=== PATIENT | male | born 1930 | race Caucasian/White ===

== ENCOUNTER 2018-06-28 09:04 | Observation (INO) ==
[2018-06-28] MEDS ORDERED: IOPAMIDOL 100 ML BOTTLE IV ONE (09:05)
--- NOTE | 2018-06-28 09:12 | Emergency Department Note ---
Neuro HPI - General Chief Complaint: Stroke Symptoms Stated Complaint: Unable to stick tongue out straight. Time Seen by Provider: 06/28/18 09:10 Mode of arrival: ambulatory - History of Present Illness HPI Narrative: This patient was playing cribbage with his this morning at 730 when he began to have some stroke symptoms involving difficulty speaking and perhaps some left-sided weakness according to the . She also thought his tongue was deviating to the left when he stuck it out. The symptoms lasted about a minute and a half she thought. She now comes into the emergency room with her at about 9:10 AM. He is never had a stroke before. No history of atrial fib. At this time he has no symptoms and his NIH score I believe is 0. - Related Data Home Medications: Home Medications Medication Instructions Recorded Confirmed aspirin 81 mg tablet,delayed 81 mg PO QDAY tab 11/06/14 06/28/18 release Niacin 500 mg PO TID tab 07/23/15 06/28/18 ferrous sulfate 325 mg (65 mg 325 mg PO QDAY tab 01/20/18 06/28/18 iron) tablet ascorbic acid (vitamin C) 500 mg 500 mg PO QDAY 01/28/18 06/28/18 tablet magnesium oxide 400 mg (241.3 mg 400 mg PO QDAY tab 01/28/18 06/28/18 magnesium) tablet vitamin A 8,000 unit capsule 8,000 unit PO QDAY 01/28/18 06/28/18 vitamin E 200 unit capsule 400 unit PO QDAY cap 01/28/18 06/28/18 Cholecalciferol (Vitamin D3) 2,000 unit PO DAILY 06/28/18 06/28/18 [Vitamin D] Previous Rx's Medication Instructions Recorded leuprolide 45 mg (6 month) 45 mg SUB-Q ONCE #7 ml 12/02/16 subcutaneous syringe alendronate 70 mg tablet 70 mg PO QWEEK #15 tab 05/18/17 levothyroxine 75 mcg tablet 75 mcg PO QDAY #90 tab 04/11/18 omeprazole 20 mg capsule,delayed 20 mg PO QDAY #90 cap 05/20/18 release tramadol 50 mg tablet 50 mg PO BID PRN #60 tab 06/16/18 Allergies/Adverse Reactions: Allergies Allergy/AdvReac Type Severity Reaction Status Date / Time No Known Drug Allergies Allergy Verified 06/08/18 08:25 Review of Systems All systems ED: reviewed and negative except as stated. Past Medical History - Past Medical History [facility] Narrative: Medical History (Last Reviewed 06/08/18 @ 08:26 by Rena Tadeo RN) Prepatellar bursitis, left knee (Chronic) Greater trochanteric bursitis of right hip (Chronic) Leg pain, right (Chronic) Osteoarthritis (Chronic) Knee pain, left (Chronic) Elevated CK (Chronic) Anemia (Resolved) Osteopenia (Chronic) Contusion (Chronic) Left foot pain (Chronic) Insomnia (Chronic) Hypertension (Chronic) Plantar fasciitis of left foot (Chronic) Urinary tract infection (Resolved) Nummular eczema (Chronic) Heartburn (Chronic) Rash (Resolved) Urge incontinence (Chronic) Sciatica (Chronic) Prostate cancer (Chronic) Pneumonia, organism unspecified (Resolved) Peripheral vascular disease (Chronic) Osteoporosis (Chronic) Low back pain (Chronic) Hypothyroidism (acquired) (Chronic) Hyperlipidemia (Chronic) Hyperkalemia (Resolved) Glaucoma (Chronic) Fatigue (Chronic) Bradycardia (Chronic) Hypochromic anemia (Chronic) Actinic keratosis (Resolved) Personal history of other malignant neoplasm of skin (Inactive) Past Surgical History (Last Reviewed 06/08/18 @ 08:26 by Rena Tadeo RN) Hx of esophagogastroduodenoscopy (Chronic 03/24/10) Normal colonoscopy (Chronic) H/O bilateral cataract extraction (Inactive) History of appendectomy (Inactive) History of hernia surgery (Inactive) History of radical prostatectomy (Inactive) Family History (Last Reviewed 06/08/18 @ 08:26 by Rena Tadeo RN) Brother Cardiovascular disease Malignant neoplasm of colon, Onset Age: 87 Malignant neoplasm of prostate Father Acute myocardial infarction Medical history: Reports: other (prostate cancer) Surgical history ED: Reports: prostatectomy - Social History smoking status: Never smoker Physical Exam Limitations: no limitations General appearance: alert Head: atraumatic Eye: Present: normal appearance, EOMI ENT: normal exam Neck: Present: normal inspection Chest: Present: normal inspection Respiratory: Present: normal lung sounds bilaterally Cardiovascular: Present: regular rate, normal rhythm, normal heart sounds Abdominal: Present: soft. Absent: distention, tenderness Neurological: Present: alert Cranial nerves: facial palsy (VII): Normal Motor strength - LUE: 5/5 Motor strength - RUE: 5/5 Motor strength - LLE: 5/5 Motor strength - RLE: 4/5 Psychiatric: Present: normal affect Skin: Present: warm Course Vital Signs Blood Pressure 158/102 06/28/18 09:05 Temperature 98.9 F 06/29/18 04:10 Pulse Rate 72 06/28/18 16:00 Respiratory Rate 18 06/29/18 04:10 Blood Pressure 130/73 06/29/18 04:10 Pulse Oximetry (%) 94 06/29/18 04:10 Neuro Symptoms/Deficit - MDM Narrative Medical decision making narrative: This patient will be admitted to the hospital for TIA by Dr. Lynne. - Lab Data Lab results reviewed: Yes I reviewed the patient's lab results. Result diagrams: 06/28/18 09:12 06/28/18 09:12 Lab Results 06/28/18 06/28/18 06/28/18 Range/Units 09:12 09:12 09:12 WBC 5.9 (4.5-11.0) K/mcL RBC 4.46 L (4.50-5.90) M/mcL Hgb 13.6 (13.5-16.5) g/dL Hct 41.9 (41.0-55.0) % POC Hct 42.0 (41.0-55.0) % MCV 93.8 (80.0-100.0) fL MCH 30.4 (26.0-34.0) pg MCHC 32.4 (31.0-36.0) g/dL RDW 13.6 (11.5-14.5) % Plt Count 207 (140-440) K/mcL MPV 8.7 (7.4-10.4) fL Gran % 55.6 (38.0-78.0) % Lymph % (Auto) 25.7 (15.5-49.0) % [place] % (Auto) 12.8 H (1.0-12.0) % Eos % (Auto) 5.0 (0.0-7.0) % Baso % (Auto) 0.9 (0.0-2.0) % Gran # 3.3 (1.8-8.0) K/mcL Lymph # (Auto) 1.5 (1.5-4.8) K/mcL [place] # (Auto) 0.8 (0.1-0.9) K/mcL Eos # (Auto) 0.3 (0.0-0.7) K/mcL Baso # (Auto) 0.1 (0.0-0.3) K/mcL POC PT 11.7 L (11.9-14.5) sec POC INR 1.0 (0.9-1.2) APTT 30 (20-37) sec POC Sodium 141 (133-145) mmol/L Sodium 139 (133-145) mmol/L POC Potassium 4.3 (3.3-5.1) mmol/L Potassium 4.3 (3.3-5.1) mmol/L POC Chloride 106 (96-108) mmol/L Chloride 103 (96-108) mmol/L Carbon Dioxide 25 (22-30) mmol/L POC Total CO2 24 (22-30) mmol/L Anion Gap 11.0 (8-16) POC BUN 16 (8-23) mg/dl BUN 15 (8-23) mg/dl Creatinine 1.0 (0.7-1.2) mg/dl POC Creatinine 1.0 (0.7-1.2) mg/dl GFR Calculation 67 Glucose 106 H (70-105) mg/dL POC Glucose 108 H (70-105) mg/dL Hemoglobin A1c (4.0-6.0) % HGB Estim Average Glucose mg/dL Calcium 9.1 (8.6-10.4) mg/dl POC WB Ioniz Calcium 1.16 (1.16-1.32) mmol/L Total Bilirubin 0.4 (0.0-1.0) mg/dL AST 25 (0-37) U/l ALT 18 (0-40) U/l Alkaline Phosphatase 61 (39-117) U/L Troponin T (0-0.03) ng/ml Total Protein 6.3 (5.9-8.4) gm/dL Albumin 4.1 (3.2-5.2) gm/dL Globulin 2.2 (2.2-3.7) gm/dL Albumin/Globulin Ratio 1.9 (1.0-2.3) Triglycerides (<150) mg/dl Cholesterol (<200) mg/dl LDL Cholesterol, Calc (SEE CHART) mg/dl Non-HDL Cholesterol (LDL TARGET+30) HDL Cholesterol (>40) mg/dl TSH (0.27-5.01) uIU/ml Urine Color Urine Appearance Urine pH (5.0-9.0) Ur Specific [place] (1.000-1.035) Urine Protein (NEG) mg/dL Urine Glucose (UA) (NEG) mg/dL Urine Ketones (NEG) mg/dL Urine Occult Blood (<0.03) mg/dL Urine Nitrate (NEG) Urine Bilirubin (NEG) mg/dL Urine Urobilinogen (NEG) mg/dL Ur Leukocyte Esterase (NEG) /uL Urine RBC (0-1) /hpf Urine WBC (0-4) /hpf Ur Squamous Epith Cells (0-4) /hpf Urine Bacteria (0) /hpf Urine Mucus (0) /hpf Ur Culture Indicated? 06/28/18 06/28/18 06/28/18 Range/Units 09:12 09:12 09:46 WBC (4.5-11.0) K/mcL RBC (4.50-5.90) M/mcL Hgb (13.5-16.5) g/dL Hct (41.0-55.0) % POC Hct (41.0-55.0) % MCV (80.0-100.0) fL MCH (26.0-34.0) pg MCHC (31.0-36.0) g/dL RDW (11.5-14.5) % Plt Count (140-440) K/mcL MPV (7.4-10.4) fL Gran % (38.0-78.0) % Lymph % (Auto) (15.5-49.0) % [place] % (Auto) (1.0-12.0) % Eos % (Auto) (0.0-7.0) % Baso % (Auto) (0.0-2.0) % Gran # (1.8-8.0) K/mcL Lymph # (Auto) (1.5-4.8) K/mcL [place] # (Auto) (0.1-0.9) K/mcL Eos # (Auto) (0.0-0.7) K/mcL Baso # (Auto) (0.0-0.3) K/mcL POC PT (11.9-14.5) sec POC INR (0.9-1.2) APTT (20-37) sec POC Sodium (133-145) mmol/L Sodium (133-145) mmol/L POC Potassium (3.3-5.1) mmol/L Potassium (3.3-5.1) mmol/L POC Chloride (96-108) mmol/L Chloride (96-108) mmol/L Carbon Dioxide (22-30) mmol/L POC Total CO2 (22-30) mmol/L Anion Gap (8-16) POC BUN (8-23) mg/dl BUN (8-23) mg/dl Creatinine (0.7-1.2) mg/dl POC Creatinine (0.7-1.2) mg/dl GFR Calculation Glucose (70-105) mg/dL POC Glucose (70-105) mg/dL Hemoglobin A1c 5.6 (4.0-6.0) % HGB Estim Average Glucose 114 mg/dL Calcium (8.6-10.4) mg/dl POC WB Ioniz Calcium (1.16-1.32) mmol/L Total Bilirubin (0.0-1.0) mg/dL AST (0-37) U/l ALT (0-40) U/l Alkaline Phosphatase (39-117) U/L Troponin T < 0.01 (0-0.03) ng/ml Total Protein (5.9-8.4) gm/dL Albumin (3.2-5.2) gm/dL Globulin (2.2-3.7) gm/dL Albumin/Globulin Ratio (1.0-2.3) Triglycerides 199 H (<150) mg/dl Cholesterol 204 H (<200) mg/dl LDL Cholesterol, Calc 115 H (SEE CHART) mg/dl Non-HDL Cholesterol 154 H (LDL TARGET+30) HDL Cholesterol 50 (>40) mg/dl TSH 2.70 (0.27-5.01) uIU/ml Urine Color Yellow Urine Appearance Clear Urine pH 5.0 (5.0-9.0) Ur Specific [place] 1.019 (1.000-1.035) Urine Protein Neg (NEG) mg/dL Urine Glucose (UA) Negative (NEG) mg/dL Urine Ketones Neg (NEG) mg/dL Urine Occult Blood 0.03 A (<0.03) mg/dL Urine Nitrate Neg (NEG) Urine Bilirubin Neg (NEG) mg/dL Urine Urobilinogen Neg (NEG) mg/dL Ur Leukocyte Esterase Neg (NEG) /uL Urine RBC 4 H (0-1) /hpf Urine WBC 1 (0-4) /hpf Ur Squamous Epith Cells < 1 (0-4) /hpf Urine Bacteria 0 (0) /hpf Urine Mucus Few (0) /hpf Ur Culture Indicated? No - Radiology Data Radiology results reviewed: Yes I reviewed the patient's radiology results. Disposition Pt seen by [facility]/PA only: No Clinical Impression: TIA (transient ischemic attack) Disposition: Xfer As Outpt/Obs ([facility]) Condition: Fair
--- NOTE | 2018-06-28 09:27 | Cat Scan Report ---
History: Transient ischemic attack and unable to stick out tongue straight TECHNIQUE: The brain was imaged without contrast at 2.5 mm intervals. The radiation exposure was limited using dose reduction technology. FINDINGS: There is mild generalized cerebral atrophy. There is no evidence of an infarct, hemorrhage or mass effect. Small physiologic calcification is noted in the left globus pallidus. The ventricles are normal in size. There is no abnormal extra-axial fluid collection. Patient has minimal white matter ischemia or degeneration in both parietal lobes. Few calcified plaques are noted in the cavernous portions of both internal carotids. IMPRESSION: Normal age-related degenerative changes and no acute abnormality is identified. Dr. Arriola was called with the results Interpreted and Authenticated by: Timothy Singleton 06/28/18
[2018-06-28 10:04] LABS: Basophils # (Auto) 0.1 K/mcL (0.0-0.3); Basophils % (Auto) 0.9 % (0.0-2.0); Eosinophils # (Auto) 0.3 K/mcL (0.0-0.7); Granulocytes % (Auto) 55.6 % (38.0-78.0); Lymphocytes # (Auto) 1.5 K/mcL (1.5-4.8); Lymphocytes % (Auto) 25.7 % (15.5-49.0); Mean Cell Volume 93.8 fL (80.0-100.0); Mean Corpuscular HGB Conc 32.4 g/dL (31.0-36.0); Monocytes # (Auto) 0.8 K/mcL (0.1-0.9); Monocytes % (Auto) 12.8 % (1.0-12.0); Platelet Count 207 K/mcL (140-440); RBC 4.46 M/mcL (4.50-5.90); Red Cell Distribution Width 13.6 % (11.5-14.5)
[2018-06-28 10:21] LABS: ALT/SGPT 18 U/l (0-40); Albumin 4.1 gm/dL (3.2-5.2); Albumin/Globulin Ratio 1.9 (1.0-2.3); Alkaline Phosphatase 61 U/L (39-117); Blood Urea Nitrogen 15 mg/dl (8-23)
[2018-06-28 10:31] LABS: Appearance,Urine CLEAR; Bacteria,Urine 0 /hpf (0); Bilirubin,Urine NEG (NEG); Color,Urine YELLOW; Glucose,Urine (UA) NEGATIVE (NEG); Leukocyte Esterase,Urine NEG /uL (NEG); Mucus,Urine FEW /hpf (0); Protein,Urine NEG (NEG); Specific Gravity,Urine 1.019 (1.000-1.035); Urine Blood 0.03 mg/dL (<0.03); Urine RBC 4 /hpf (0-1); Urine Squamous Epithelial Cell < 1 /hpf (0-4); Urine WBC 1 /hpf (0-4); Urobilinogen,Urine NEG (NEG)
--- NOTE | 2018-06-28 11:19 | Cat Scan Report ---
History: New stroke symptoms and unable to stick his tongue out straight TECHNIQUE: Following injection of intravenous nonionic contrast the patient was scanned during the arterial phase from the top of the aortic arch to the top of the head. Sagittal and coronal reformats of the head and neck were created separately. 3-D volume rendered images of the neck were also created. Radiation exposure was limited using dose reduction technology. FINDINGS: The aortic arch and great vessels arising from the aorta are normal in caliber. There is no aortic aneurysm or dissection. A small amount calcified plaque along the wall of the distal aortic arch. There is no plaque formation at the origins of the great vessels arising from the aorta. The common carotids are normal. Small eccentric plaques are seen along the wall of the origins of both internal carotids. These are not causing stenosis. The larger plaque is on the left side. No ulcerated plaque is present. Beyond their origins, the internal carotids are normal. The vertebral arteries are normal in caliber without evidence of stenosis. The left vertebral is dominant. Intracranially there is a small amount of eccentric plaque along the valdov[place] of the cavernous portions of both internal carotids. These are not causing stenosis. The anterior and middle cerebral arteries are normal. There is a large patent anterior communicating artery. There are patent but relatively small posterior communicating arteries. The intracranial portions of the vertebrals and basilar artery are normal. There is normal arterial circulation to the posterior fossa. There is abnormal enhancement in or adjacent to the cortex, within a few sulci located posteriorly at the right parietal-occipital boundary. This region measures approximately 1.5 cm in size. Along the posterior margin there is a relatively large draining vein which drains to the right transverse sinus. There is normal enhancement of the peripheral branches of the right middle and posterior cerebral arteries, without apparent vascular occlusion. There is no aneurysm in this region. The precontrast CT scan done earlier on the same date showed no blood products or abnormal vessels in this region. The intracranial circulation is otherwise normal. There is normal enhancement of the deep and superficial veins, without evidence of venous thrombosis. Incidentally noted is severe disc space narrowing and arthritis at multiple levels in the cervical spine from C3-4 through T1-2. IMPRESSION: Small plaques at the origins of both internal carotids and in the cavernous portions of both internal carotids. These are not causing stenosis. No evidence of intracranial thrombosis or occlusion Small vascular anomaly in a watershed region at the right parietal occipital boundary. 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 Dr. Arriola was called with the results Interpreted and Authenticated by: Timothy Singleton 06/28/18
[2018-06-28] MEDS ORDERED: NALOXONE HCL 0.4 MG/ML VIAL IV PRN (13:32)
[2018-06-28] MEDS ORDERED: ONDANSETRON 4 MG/2 ML VIAL IV PRN (13:32)
[2018-06-28] MEDS ORDERED: ACETAMINOPHEN 325 MG TABLET PO PRN (13:32)
[2018-06-28 14:13] LABS: HDL Cholesterol 50 mg/dl (>40); LDL Cholesterol,Calculated 115 mg/dl (SEE CHART)
[2018-06-28] MEDS ORDERED: traMADol 50 MG TABLET PO PRN (14:24)
--- NOTE | 2018-06-28 14:39 | Internal Med History&Physical ---
Medical - H&P: HPI Patient information: Note initiated : 06/28/18 at 2:37 pm Service Date, if different from initiated Date: [] Patient: Vladimir Mcfarland 88 y/o M admitted on 06/28/18 for Unable To Stick Tongue Out Straight. Chief Complaint: [] History of present illness: Mr. Mcfarland is a 88 year old M with h/o hld, presents to the ER today for evaluation of neurological deficit. The patient was playing a game of cards with his today at around 815 she noticed that the patient became confused, was unable to speak words, noticed that the left side of the hand was weak and his tongue was deviated to the left side. She denied any facial deviation, or any other symptoms. The patient was brought to the emergency room for further evaluation. By the time the patient appeared to the emergency room, the patient 's speech had improved and weakness had resolved, however his tongue deviation had persisted. The tongue deviation resolved around 1130-12. The total symptom duration was around 4 hours. In the emergency room on presentation patient was afebrile temperature 98.3, heart rate 61 blood pressure 158 202 respirations 15 saturating 97% on room air. Head CT done was negative, CT angiogram of the head and neck showed small plaques in the ICA but no obvious stenosis. EKG shows sinus rhythm with PACs, labs are unremarkable troponin was negative. Patient was admitted to the hospital for expedited evaluation of TIA. The patient denied any other complaints, no chest pain headache dizziness shortn ess of breath changes in vision difficulty in swallowing no fever cough abdominal symptoms no urinary symptoms no new skin rashes or joint pains All systems: reviewed and no additional remarkable complaints except as stated (as per HPI rest neg) Medical - H&P: PMH Medical history: Medical History (Last Reviewed 06/08/18 @ 08:26 by Rena Tadeo RN) Prepatellar bursitis, left knee (Chronic) Greater trochanteric bursitis of right hip (Chronic) Leg pain, right (Chronic) Osteoarthritis (Chronic) Knee pain, left (Chronic) Elevated CK (Chronic) Anemia (Resolved) Osteopenia (Chronic) Contusion (Chronic) Left foot pain (Chronic) Insomnia (Chronic) Hypertension (Chronic) Plantar fasciitis of left foot (Chronic) Urinary tract infection (Resolved) Nummular eczema (Chronic) Heartburn (Chronic) Rash (Resolved) Urge incontinence (Chronic) Sciatica (Chronic) Prostate cancer (Chronic) Pneumonia, organism unspecified (Resolved) Peripheral vascular disease (Chronic) Osteoporosis (Chronic) Low back pain (Chronic) Hypothyroidism (acquired) (Chronic) Hyperlipidemia (Chronic) Hyperkalemia (Resolved) Glaucoma (Chronic) Fatigue (Chronic) Bradycardia (Chronic) Hypochromic anemia (Chronic) Actinic keratosis (Resolved) Personal history of other malignant neoplasm of skin (Inactive) Surgical history: Past Surgical History (Last Reviewed 06/08/18 @ 08:26 by Rena Tadeo RN) Hx of esophagogastroduodenoscopy (Chronic 03/24/10) Normal colonoscopy (Chronic) H/O bilateral cataract extraction (Inactive) History of appendectomy (Inactive) History of hernia surgery (Inactive) History of radical prostatectomy (Inactive) Pertinent family history: Family History (Last Reviewed 06/08/18 @ 08:26 by Rena Tadoe RN) Brother Cardiovascular disease Malignant neoplasm of colon, Onset Age: 87 Malignant neoplasm of prostate Father Acute myocardial infarction Medical - H&P: Meds Home Medications Medication Instructions Recorded Confirmed Type aspirin 81 mg tablet,delayed 81 mg PO QDAY tab 11/06/14 06/28/18 History release Niacin 500 mg PO TID tab 07/23/15 06/28/18 History leuprolide 45 mg (6 month) 45 mg SUB-Q ONCE #7 ml 12/02/16 06/28/18 Rx subcutaneous syringe alendronate 70 mg tablet 70 mg PO QWEEK #15 tab 05/18/17 06/28/18 Rx ferrous sulfate 325 mg (65 mg 325 mg PO QDAY tab 01/20/18 06/28/18 History iron) tablet ascorbic acid (vitamin C) 500 mg 500 mg PO QDAY 01/28/18 06/28/18 History tablet magnesium oxide 400 mg (241.3 mg 400 mg PO QDAY tab 01/28/18 06/28/18 History magnesium) tablet vitamin A 8,000 unit capsule 8,000 unit PO QDAY 01/28/18 06/28/18 History vitamin E 200 unit capsule 400 unit PO QDAY cap 01/28/18 06/28/18 History levothyroxine 75 mcg tablet 75 mcg PO QDAY #90 tab 04/11/18 06/28/18 Rx omeprazole 20 mg capsule,delayed 20 mg PO QDAY #90 cap 05/20/18 06/28/18 Rx release tramadol 50 mg tablet 50 mg PO BID PRN #60 tab 06/16/18 06/28/18 Rx Cholecalciferol (Vitamin D3) 2,000 unit PO DAILY 06/28/18 06/28/18 History [Vitamin D] Allergies Allergy/AdvReac Type Severity Reaction Status Date / Time No Known Drug Allergies Allergy Verified 06/08/18 08:25 Medical - H&P: Exam - Constitutional Vitals: Temp Pulse Resp BP Pulse Ox 98.3 F 65 18 122/79 97 06/28/18 14:04 06/28/18 13:32 06/28/18 13:32 06/28/18 14:04 06/28/18 13:32 Exam: GENERAL: The patient is a well-developed, well-nourished in no apparent distress. Is alert and oriented x3. VITAL SIGNS: Reviewed and as noted elsewhere. HEENT: Head is normocephalic and atraumatic. Extraocular muscles are intact. Pupils are equal, round, and reactive to light. Nares appeared normal. Mouth appears any without lesions. Mucous membranes are moist. NECK: Normal to inspection, Supple, No lymphadenopathy or thyromegaly. LUNGS: Air entry equal on both sides, no wheezing, crackles or rhonchi noted. No accessory muscles of respiration HEART: Regular rate and rhythm normal, S1 and S2 heard, no Gallop, S3 or Rub Noted, No Gross murmur heard. ABDOMEN: Soft, nontender, and nondistended. Positive bowel sounds. No hepatosplenomegaly was noted. EXTREMITIES: No cyanosis, clubbing, rash, lesions or edema. NEUROLOGIC: Cranial nerves II through XII are grossly intact. no tongue d eviation, no facial weakness, sensory system normal to touch bilaterally, strength 5/5 in neftali upper extremities, right LL 5/5 (left lower leg is slightly weak 4/5 which is chronic as per pt) , DTR ++ neftali biceps and knees. PSYCHIATRIC: Normal affect, Normal Mood. Appropriate Behavior. SKIN: No ulceration or wounds noted, No jaundice, No rash noted. Medical - H&P: Reslt - Labs CBC & Chem 7: 06/28/18 09:12 06/28/18 09:12 Labs: Short CBC 06/28/18 Range/Units 09:12 WBC 5.9 (4.5-11.0) K/mcL Hgb 13.6 (13.5-16.5) g/dL Hct 41.9 (41.0-55.0) % Plt Count 207 (140-440) K/mcL BMP 06/28/18 09:12 Sodium 139 Potassium 4.3 Chloride 103 Carbon Dioxide 25 BUN 15 Creatinine 1.0 Glucose 106 H Calcium 9.1 Cardiac Enzymes 06/28/18 Range/Units 09:12 Troponin T < 0.01 (0-0.03) ng/ml Liver Function 06/28/18 Range/Units 09:12 Total Bilirubin 0.4 (0.0-1.0) mg/dL AST 25 (0-37) U/l ALT 18 (0-40) U/l Alkaline Phosphatase 61 (39-117) U/L Albumin 4.1 (3.2-5.2) gm/dL Urine 06/28/18 Range/Units 09:46 Urine Color Yellow Urine Appearance Clear Urine pH 5.0 (5.0-9.0) Ur Specific [place] 1.019 (1.000-1.035) Urine Protein Neg (NEG) mg/dL Urine Glucose (UA) Negative (NEG) mg/dL Medical - H&P: A/P - Narrative A/P Narrative: A/P TIA CT head is neg, CTA neg for severe vascular stenosis, pt already on ASA, stop same, start on clopidogrel check lipid panel, a1c, tsh start on statin atorvastatin 40mg qhs monitor on tele OT/PT /ST eval HLD on niacin? continue same add atorvastatin Hypothyroidism check tsh resume synthroid GERD hold omeprazole start on pantoprazole, pt now on plavix. DVT on hep sq Diet cardiac Full code. Medical - H&P: Qual - Stroke Symptom Onset Unknown: No - VTE Deep Vein Thrombosis/Pulmonary Embolism Present on Admission: No Social History - Social History household members: spouse housing: house lives independently: Yes marital status: education level: college occupational status: retired occupation: newspaper - Exercise physical activity: walking frequency: 3-4 times per week - Tobacco smoking status: Never smoker - Alcohol alcohol intake frequency: holiday/special occasion only - Substance use substance use type: does not use
[2018-06-28] MEDS: 0.9 % SODIUM CHLORIDE 10 ML SYRINGE IV SCH ×2 (15:01→21:53)
[2018-06-28] MEDS: CLOPIDOGREL 75 MG TABLET PO SCH (15:01)
[2018-06-28 15:50] LABS: Estimated Average Glucose(eAG) 114 mg/dL; Hemoglobin A1C 5.6 % HGB (4.0-6.0)
[2018-06-28] MEDS ORDERED: ATORVASTATIN 20 MG TABLET PO SCH (21:00)
[2018-06-28] MEDS ORDERED: NIACIN 250 MG CAP.SR.12H PO SCH (21:00)
[2018-06-28] MEDS: HEPARIN 5,000 UNIT/ML VIAL SQ SCH (21:30)
[2018-06-29] MEDS: 0.9 % SODIUM CHLORIDE 10 ML SYRINGE IV SCH (05:54)
[2018-06-29] MEDS ORDERED: PANTOPRAZOLE 40 MG PACKET PO SCH (07:30)
[2018-06-29] MEDS ORDERED: LEVOTHYROXINE 75 MCG TABLET PO SCH (07:30)
[2018-06-29] MEDS: HEPARIN 5,000 UNIT/ML VIAL SQ SCH (08:13)
[2018-06-29] MEDS: CLOPIDOGREL 75 MG TABLET PO SCH (08:14)
[2018-06-29] MEDS ORDERED: MAGNESIUM OXIDE 400 MG TABLET PO SCH (09:00)
[2018-06-29] MEDS ORDERED: VITAMIN D3 1,000 UNIT TABLET PO SCH (09:00)
[2018-06-29] MEDS ORDERED: ASCORBIC ACID 500 MG TABLET PO SCH (09:00)
[2018-06-29] MEDS ORDERED: FERROUS SULFATE 325 MG TABLET PO SCH (09:00)
--- NOTE | 2018-06-29 10:04 | Discharge Summary ---
Medical - DS: Prov Patient information: Note initiated : 06/29/18 at 9:55 am Service Date, if different from initiated Date: [] Patient: Vladimir Mcfarland 88 y/o M admitted on 06/28/18 for Stroke Symptoms. Date of admission: 06/28/18 13:21 Discharge date: 06/29/18 Primary care physician: Jamie Muniz Admitting clinician: Dariusz Lynne Consults: 06/28/18 Consult to Physician [CONS] Stat Comment: Consulting Provider: Dariusz Lynne Reason For Exam: Physician to Consult Discharging clinician: Shalini Valdez Medical - DS: Meds - Discharge Medications Prescriptions: Atorvastatin [Lipitor] 40 mg PO HS #30 tablet Clopidogrel Bisulfate [Plavix] 75 mg PO DAILY #30 tablet Active and Home Medications: Home Medications aspirin 81 mg tablet,delayed release 81 mg PO QDAY tab 11/06/14 [History Confirmed 06/28/18 Last Taken 04/12/15] Niacin 500 mg PO TID tab 07/23/15 [History Confirmed 06/28/18 Last Taken 04/12/15] leuprolide 45 mg (6 month) subcutaneous syringe 45 mg SUB-Q ONCE #7 ml 12/02/16 [Rx Confirmed 06/28/18 Last Taken Unknown] alendronate 70 mg tablet 70 mg PO QWEEK #15 tab 05/18/17 [Rx Confirmed 06/28/18 Last Taken Unknown] ferrous sulfate 325 mg (65 mg iron) tablet 325 mg PO QDAY tab 01/20/18 [History Confirmed 06/28/18 Last Taken Unknown] ascorbic acid (vitamin C) 500 mg tablet 500 mg PO QDAY 01/28/18 [History Confirmed 06/28/18 Last Taken Unknown] magnesium oxide 400 mg (241.3 mg magnesium) tablet 400 mg PO QDAY tab 01/28/18 [History Confirmed 06/28/18 Last Taken Unknown] vitamin A 8,000 unit capsule 8,000 unit PO QDAY 01/28/18 [History Confirmed 06/28/18 Last Taken Unknown] vitamin E 200 unit capsule 400 unit PO QDAY cap 01/28/18 [History Confirmed 06/28/18 Last Taken Unknown] levothyroxine 75 mcg tablet 75 mcg PO QDAY #90 tab 04/11/18 [Rx Confirmed 06/28/18 Last Taken Unknown] omeprazole 20 mg capsule,delayed release 20 mg PO QDAY #90 cap 05/20/18 [Rx Confirmed 06/28/18 Last Taken Unknown] tramadol 50 mg tablet 50 mg PO BID PRN #60 tab 06/16/18 [Rx Confirmed 06/28/18 Last Taken Unknown] Cholecalciferol (Vitamin D3) [Vitamin D] 2,000 unit PO DAILY 06/28/18 [History Confirmed 06/28/18 Last Taken Unknown] Medical - DS: Hosp Hospital course: Presentation: Mr. Mcfarland is a 88 year old M with h/o hld, presents to the ER today for evaluation of neurological deficit. The patient was playing a game of cards with his today at around 815 she noticed that the patient became confused, was unable to speak words, noticed that the left side of the hand was weak and his tongue was deviated to the left side. She denied any facial deviation, or any other symptoms. The patient was brought to the emergency room for further evaluation. By the time the patient appeared to the emergency room, the patient's speech had improved and weakness had resolved, however his tongue deviation had persisted. The tongue deviation resolved around 1130-12. The total symptom duration was around 4 hours. In the emergency room on presentation patient was afebrile temperature 98.3, heart rate 61, blood pressure 158/102, respirations 15, saturating 97% on room air. Head CT done was negative, CT angiogram of the head and neck showed small plaques in the ICA but no obvious stenosis. EKG shows sinus rhythm with PACs, labs are unremarkable troponin was negative. Patient was admitted to the hospital for expedited evaluation of TIA. Course: The patient continued to do well during his hospitalization, without any further recurrent neurologic symptoms. Telemetry monitoring showed sinus rhythm with PACs, no evidence of atrial fibrillation. Echocardiogram demonstrated preserved left ventricular ejection fraction with normal wall motion. He had been on 81 mg of aspirin as an outpatient, that was changed to clopidogrel, 75 mg daily. He was started on high potency atorvastatin, 40 mg at bedtime. He previously had been on a statin in the past and eventually develop some leg pains. After discussion with the patient, at this point the benefits of statin reintroduction appear to outweigh the risks. He'll need monitored for any onset of statin side effect. His niacin was stopped the time of discharge. Total cholesterol was 206, LDL 115 at this admission. Discharge diagnosis: Transient ischemic attack - Time Spent with Patient Total time spent providing and/or coordinating discharge services: Greater than 30 minutes Medical - DS: Exam - Constitutional Vitals: Vital Signs Temp Pulse Pulse Resp BP BP Pulse Ox 06/29/18 07:57 98.4 F 76 18 127/81 96 06/29/18 04:10 98.9 F 18 130/73 94 06/29/18 00:18 97.8 F 16 123/75 97 06/28/18 20:00 98.5 F 18 100/65 97 06/28/18 16:00 97.1 F 72 18 131/68 06/28/18 14:04 98.3 F 122/79 06/28/18 13:32 98.3 F 65 18 177/86 97 06/28/18 13:21 98.3 F 61 16 122/79 96 06/28/18 13:01 13 134/73 06/28/18 13:00 52 L 21 95 06/28/18 12:47 58 L 19 145/81 94 06/28/18 12:32 35 L 13 175/58 97 06/28/18 12:16 56 L 14 140/63 95 06/28/18 12:01 62 20 155/84 97 06/28/18 11:46 47 L 15 152/76 95 06/28/18 11:31 69 19 138/104 96 06/28/18 11:23 55 L 21 127/72 95 06/28/18 11:01 53 L 11 L 94 06/28/18 10:16 51 L 14 120/68 95 06/28/18 10:07 58 L 15 129/67 95 Intake and Output 06/28/18 06/29/18 06/29/18 21:59 05:59 13:59 Intake Total 580 Output Total 3 2 Balance 577 -2 Intake: Oral 580 Output: Void Amount 3 # of times incontinent of urine 2 Other: Meal Lunch Percent of Meal Consumed 100% Feeding Ability Independent Urine Appearance Cloudy Urine Color Pale # Voids 2 Weight 162 lb Additional comments: General: Awake, alert, no acute distress Chest: Clear, unlabored Cardiovascular: Regular with extra beats, no murmur gallop or rub appreciated Abdomen: Soft, nontender Neuro: Face symmetric, pupils equal, tongue midline. Heart of hearing. Strength is 5/5 at the bridge mechanic, biceps, triceps, hip flexors, knee flexors, knee extensors. Sensation intact to light touch bilaterally. Medical - DS: Data Labs on day of discharge: Labs from last 24 hours 06/28/18 06/28/18 06/28/18 09:46 09:12 09:12 WBC RBC Hgb Hct MCV MCH MCHC RDW Plt Count MPV Gran % Lymph % (Auto) [place] % (Auto) Eos % (Auto) Baso % (Auto) Gran # Lymph # (Auto) [place] # (Auto) Eos # (Auto) Baso # (Auto) APTT Sodium Potassium Chloride Carbon Dioxide Anion Gap BUN Creatinine GFR Calculation Glucose Hemoglobin A1c 5.6 Estim Average Glucose 114 Calcium Total Bilirubin AST ALT Alkaline Phosphatase Troponin T < 0.01 Total Protein Albumin Globulin Albumin/Globulin Ratio Triglycerides 199 H Cholesterol 204 H LDL Cholesterol, Calc 115 H Non-HDL Cholesterol 154 H HDL Cholesterol 50 TSH 2.70 Urine Color Yellow Urine Appearance Clear Urine pH 5.0 Ur Specific [place] 1.019 Urine Protein Neg Urine Glucose (UA) Negative Urine Ketones Neg Urine Occult Blood 0.03 A Urine Nitrate Neg Urine Bilirubin Neg Urine Urobilinogen Neg Ur Leukocyte Esterase Neg Urine RBC 4 H Urine WBC 1 Ur Squamous Epith Cells < 1 Urine Bacteria 0 Urine Mucus Few Ur Culture Indicated? No 06/28/18 06/28/18 06/28/18 09:12 09:12 09:12 WBC 5.9 RBC 4.46 L Hgb 13.6 Hct 41.9 MCV 93.8 MCH 30.4 MCHC 32.4 RDW 13.6 Plt Count 207 MPV 8.7 Gran % 55.6 Lymph % (Auto) 25.7 [place] % (Auto) 12.8 H Eos % (Auto) 5.0 Baso % (Auto) 0.9 Gran # 3.3 Lymph # (Auto) 1.5 [place] # (Auto) 0.8 Eos # (Auto) 0.3 Baso # (Auto) 0.1 APTT 30 Sodium 139 Potassium 4.3 Chloride 103 Carbon Dioxide 25 Anion Gap 11.0 BUN 15 Creatinine 1.0 GFR Calculation 67 Glucose 106 H Hemoglobin A1c Estim Average Glucose Calcium 9.1 Total Bilirubin 0.4 AST 25 ALT 18 Alkaline Phosphatase 61 Troponin T Total Protein 6.3 Albumin 4.1 Globulin 2.2 Albumin/Globulin Ratio 1.9 Triglycerides Cholesterol LDL Cholesterol, Calc Non-HDL Cholesterol HDL Cholesterol TSH Urine Color Urine Appearance Urine pH Ur Specific [place] Urine Protein Urine Glucose (UA) Urine Ketones Urine Occult Blood Urine Nitrate Urine Bilirubin Urine Urobilinogen Ur Leukocyte Esterase Urine RBC Urine WBC Ur Squamous Epith Cells Urine Bacteria Urine Mucus Ur Culture Indicated? - Imaging and Cardiology CT scan - head Additional comments: Date of Service: 06/28/18 Procedure(s): CT head/brain wo con History: Transient ischemic attack and unable to stick out tongue straight FINDINGS: There is mild generalized cerebral atrophy. There is no evidence of an infarct, hemorrhage or mass effect. Small physiologic calcification is noted in the left globus pallidus. The ventricles are normal in size. There is no abnormal extra-axial fluid collection. Patient has minimal white matter ischemia or degeneration in both parietal lobes. Few calcified plaques are noted in the cavernous portions of both internal carotids. IMPRESSION: -Normal age-related degenerative changes and no acute abnormality is identified. Date of Service: 06/28/18 Procedure(s): CT angio head Procedure(s): CT angio neck History: New stroke symptoms and unable to stick his tongue out straight IMPRESSION: -Small plaques at the origins of both internal carotids and in the cavernous portions of both internal carotids. These are not causing stenosis. -No evidence of intracranial thrombosis or occlusion -Small vascular anomaly in a watershed region at the right parietal occipital boundary. 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 - Additional Comments Echocardiogram: The left ventricle is normal in size. There is mild to moderate concentric left ventricular hypertrophy. Left ventricular systolic function is normal. There is mild posterior mitral annular calcification. The IVC inspiratory collapse is normal at greater than 50%. Unable to accurately assess RV systolic pressures in the absence of significant tricuspid regurgitation. The aortic valve leaflets appear mildly calcified. There is aortic root sclerosis/calcification. Medical - DS: A/P - Patient/Caregiver Discharge Instructions Activity: increase activity as tolerated Diet: Regular Diet Prescriptions: Atorvastatin [Lipitor] 40 mg PO HS #30 tablet Clopidogrel Bisulfate [Plavix] 75 mg PO DAILY #30 tablet - Follow up Plan Follow up with: Jamie Muniz MD [Primary Care Provider] - 07/05/18 2:15 pm (please check in at 2:00 pm) Disposition: Home, Self-Care Prognosis: Fair Rehab Potential: Fair Overall status at discharge: patient is back to baseline Medical - DS: Qual - VTE Deep Vein Thrombosis/Pulmonary Embolism Present on Admission: No
== END 2018-06-29 11:15 | disposition home or self-care (01) ==
LOC: ICU 09:04 → ED 09:04 → ICU 13:28
PROVIDERS: ADMIT Internal Medicine; ATTEND Internal Medicine